=== PATIENT | male | born 1970 | race American Indian/Alaskan Native ===

== ENCOUNTER 2016-10-01 06:36 | Inpatient (IN) | payer SELFPAY ==
[2016-10-01 07:36] LABS: Basophils % (Auto) 0.5 % (0.0-1.8); Eosinophils % (Auto) 0.7 % (0.0-4.3); Hemoglobin 15.3 gm/dl (11.8-15.2); Mean Corpuscular HGB Conc 33 % (32-34); Mean Corpuscular Hemoglobin 28 pg (28-32); Mean Corpuscular Volume 83 fl (84-94); Platelet Count 221 K/mm3 (140-440); Red Blood Count 5.56 M/mm3 (3.65-5.03); Red Cell Distribution Width 14.3 % (13.2-15.2); White Blood Count 6.7 K/mm3 (4.5-11.0)
[2016-10-01 07:59] LABS: Anion Gap 18 mmol/L; Blood Urea Nitrogen 9 mg/dL (9-20); Calcium 9.5 mg/dL (8.4-10.2); Carbon Dioxide 26 mmol/L (22-30); Chloride 101.8 mmol/L (98-107); Glucose 119 mg/dL (75-100); Potassium 4.2 mmol/L (3.6-5.0); Sodium 142 mmol/L (137-145)
--- NOTE | 2016-10-01 08:20 | Emergency Department Report ---
ED Chest Pain HPI - General Chief Complaint: Chest Pain Stated Complaint: CHEST PAIN, BODY PAIN, Time Seen by Provider: 10/01/16 08:18 Source: patient Mode of arrival: Ambulatory Limitations: No Limitations - History of Present Illness Initial Comments: Patient describes an intermittent mostly right-sided chest pain since approximately 11:00 last night. He states he began feeling discomfort in the right subscapular area which then involved the right anterior aspect of his chest but also the substernal area all the way to the left breast. Described it as somewhat pressure-like associated with difficulty in breathing. Patient states about a week ago he had some similar pain which lasted for approximately 3 hours. This has been more prolonged this time. However at the time of my encounter the patient had resolved. Dyspnea was no longer present as well. Patient stated that he was nauseated transiently last night. The patient has flown to [place] approximately one month ago. He denied any problems with leg pain or swelling. He has no history of VTE. There is no family history of that as well. Patient thinks that his father may have of a heart attack. He himself has had no prior cardiac workup or hospitalization. MD Complaint: chest pain -: Gradual Onset: during rest Pain Location: substernal, right chest Pain Radiation: back Severity scale (0 -10): 6 Quality: aching Consistency: intermittent, now resolved Improves With: nothing Worsens With: nothing re: dyspnea. denies: nausea, vomting, diaphoresis Other Symptoms: denies: cough Treatments Prior to Arrival: none Aspirin use within the Past 7 Days: (0) No - Related Data Home Medications Medication Instructions Recorded Confirmed Last Taken No Known Home Medications [No 10/01/16 10/01/16 Unknown Reported Home Medications] Allergies Allergy/AdvReac Type Severity Reaction Status Date / Time No Known Allergies Allergy Unverified 10/01/16 07:02 Heart Score - HEART Score History: Moderately suspicious EKG: Normal Age: 45-65 Risk factors: 1-2 risk factors Troponin: < normal limit HEART Score: 3 - Critical Actions Critical Actions: 0-3 pts:0.9-1.7%risk of adverse cardiac event.Candidate for discharge ED Review of Systems ROS: Stated complaint: CHEST PAIN, BODY PAIN, Other details as noted in HPI Constitutional: denies: chills, fever Eyes: denies: eye pain, eye discharge, vision change ENT: denies: ear pain, throat pain Respiratory: shortness of breath. denies: cough, wheezing Cardiovascular: chest pain. denies: palpitations Endocrine: no symptoms reported Gastrointestinal: denies: abdominal pain, nausea, diarrhea Genitourinary: denies: urgency, dysuria Musculoskeletal: denies: back pain, joint swelling, arthralgia Skin: denies: rash, lesions Neurological: denies: headache, weakness, paresthesias Psychiatric: denies: anxiety, depression Hematological/Lymphatic: denies: easy bleeding, easy bruising ED Past Medical Hx - Past Medical History Previous Medical History?: No - Surgical History Past Surgical History?: No - Social History Smoking Status: Former Smoker Substance Use Type: None - Medications Home Medications: Home Medications Medication Instructions Recorded Confirmed Last Taken Type No Known Home Medications [No 10/01/16 10/01/16 Unknown History Reported Home Medications] ED Physical Exam - General Limitations: No Limitations General appearance: alert, in no apparent distress - Head Head exam: Present: atraumatic, normocephalic - Eye Eye exam: Present: normal appearance. Absent: scleral icterus - ENT ENT exam: Present: mucous membranes moist - Neck Neck exam: Present: normal inspection - Respiratory Respiratory exam: Present: normal lung sounds bilaterally. Absent: respiratory distress - Cardiovascular Cardiovascular Exam: Present: regular rate, normal rhythm. Absent: systolic murmur, diastolic murmur, rubs, gallop - GI/Abdominal GI/Abdominal exam: Present: soft, normal bowel sounds. Absent: distended, tenderness, guarding, rebound - Rectal Rectal exam: Present: deferred - Extremities Exam Extremities exam: Present: normal inspection, normal capillary refill. Absent: tenderness, pedal edema, joint swelling, calf tenderness - Back Exam Back exam: Present: normal inspection - Neurological Exam Neurological exam: Present: alert, oriented X3, CN II-XII intact. Absent: motor sensory deficit - Psychiatric Psychiatric exam: Present: normal affect, normal mood - Skin Skin exam: Present: warm, dry, intact, normal color. Absent: rash ED Course Vital Signs 10/01/16 10/01/16 06:51 07:25 Temperature 98.7 F Pulse Rate 68 Respiratory 18 20 Rate Blood Pressure 137/87 Blood Pressure 137/87 [Left] O2 Sat by Pulse 100 100 Oximetry - Reevaluation(s) Reevaluation #1: Patient's pain was somewhat atypical. His d-dimer was negative. Not withstanding this I think it's reasonable to put him in for cardiac workup as he did have associated symptoms and some substernal component of his pain with a positive family history of myocardial infarction. He was admitted by Dr. Bean to the hospitalist service for further care and evaluation. 10/01/16 10:09 ELIESER score - Elieser Score Age > 65: (0) No Aspirin use within the Past 7 Days: (0) No 3 or more CAD Risk Factors: (0) No 2 or more Angina events in past 24 hrs: (0) No Known CAD with more than 50% Stenosis: (0) No Elevated Cardiac Markers: (0) No ST Deviation Greater than 0.5mm: (0) No ELIESER Score: 0 ED Medical Decision Making - Lab Data Result diagrams: 10/01/16 07:12 10/01/16 07:12 Laboratory Results - last 24 hr 10/01/16 10/01/16 07:12 07:12 WBC 6.7 RBC 5.56 H Hgb 15.3 H Hct 46.0 H MCV 83 L MCH 28 MCHC 33 RDW 14.3 Plt Count 221 Lymph % (Auto) 18.8 Sequoyah % (Auto) 5.0 Eos % (Auto) 0.7 Baso % (Auto) 0.5 Lymph # 1.3 Sequoyah # 0.3 Eos # 0.0 Baso # 0.0 Seg Neutrophils % 75.0 H Seg Neutrophils # 5.1 Sodium 142 Potassium 4.2 Chloride 101.8 Carbon Dioxide 26 Anion Gap 18 BUN 9 Creatinine 1.0 Estimated GFR > 60 BUN/Creatinine Ratio 9.00 Glucose 119 H Calcium 9.5 Troponin T < 0.010 - EKG Data -: EKG Interpreted by Me EKG shows normal: sinus rhythm Rate: normal - EKG Data 10/01/16 08:20 There is a slight intraventricular conduction delay perhaps. There are Q waves in the inferior leads. There is minimal J-point elevation in the inferior leads. There is somewhat rightward axis. No STEMI right ear area. - Radiology Data interpreted by me: Chest x-ray shows no acute process Critical care attestation.: If time is entered above; I have spent that time in minutes in the direct care of this critically ill patient, excluding procedure time. ED Disposition Clinical Impression: Chest pain Qualifiers: Chest pain type: unspecified Qualified Code(s): R07.9 - Chest pain, unspecified Disposition: DC-09 OP ADMIT IP TO THIS HOSP Is pt being admited?: Yes Does the pt Need Aspirin: Yes Condition: Stable Instructions: Chest Pain (ED) Time of Disposition: 10:12
--- NOTE | 2016-10-01 08:59 | XRay Report ---
Single view chest: History: Difficulty breathing. Findings: Normal cardiomediastinal silhouette. Trachea is midline. No consolidation, pneumothorax or pleural effusion. Impression: No acute cardiopulmonary findings.
[2016-10-01 09:08] LABS: INR 1.14 (0.87-1.13)
[2016-10-01 09:09] LABS: Partial Thromboplastin Time 32.1 Sec. (24.2-36.6)
[2016-10-01 09:30] LABS: Alanine Aminotransferase 22 units/L (7-56); Albumin 4.6 g/dL (3.9-5); Albumin/Globulin Ratio 1.6 %; Alkaline Phosphatase 63 units/L (35-129); Total Protein 7.5 g/dL (6.3-8.2)
[2016-10-01 09:33] LABS: Bilirubin,Direct < 0.2 mg/dL (0-0.2)
[2016-10-01] MEDS: BABY ASPIRIN PO SCH (12:30)
--- NOTE | 2016-10-01 14:12 | Admit Criteria Form ---
Admission Criteria Documentation: CARDIOLOGY GRG Clinical Indications for Admission to Inpatient Care ( Place 'X' for any and all applicable criteria): Hospital admission is needed for appropriate care of the patient because of ANY ONE of the following (1): [ ] I. Hemodynamic instability as indicated by ALL of the following (1)(2)(3) (4)(5) [ ]a) Vital signs or other findings not as expected for chronic patient condition or baseline [ ]b) Instability indicated by ANY ONE of the following: [ ]i) Hypotension [ ]ii) Symptomatic Tachycardia unresponsive to treatment ( e.g., analgesia, fluids, sedation as indicated) [ ]iii) Inadequate perfusion indicated by ANY ONE of the following: [ ] 1) Lactic acidosis (> 2 mmol/L) [ ] 2) New abnormal capillary refill (> 3 seconds) [ ] 3) Reduced urine output [ ] 4) New altered mental status [ ]iv) Orthostatic vital sign changes unresponsive to treatment (e.g., fluids) [ ]v) IV inotropic or vasopressor medication required to maintain adequate blood pressure or perfusion [ ] II. Severe heart failure as indicated by ANY ONE of the following(17)(18) [ ]a) Respiratory distress [ ]b) Hypotension [ ]c) Anasarca (refractory to outpatient therapy) [ ]d) Cardiac arrhythmias of immediate concern [ ]e) Myocardial ischemia [ ] III. Cardiac arrhythmias or findings of immediate concern indicated by ANY ONE of the following (19)(20): [ ] a) Heart rhythms that are inherently dangerous or unstable indicated by ANY ONE of the following (21)(22)(23): [ ] i) Resuscitated ventricular fibrillation or cardiac arrest [ ] ii) Ventricular escape rhythm [ ] iii) Sustained ventricular tachycardia (30 seconds or more of ventricular rhythm at greater than 100 beats per minute) [ ] iv) Nonsustained ventricular tachycardia and ANY ONE of the following: [ ] 1) Suspected cardiac ischemia as cause or consequence of ventricular tachycardia [ ] 2) In setting of acute myocarditis [ ] b) Unstable cardiac conduction defects indicated by ANY ONE of the following(23)(24)(25) [ ] i) Type II second-degree atrioventricular block [ ]ii) Third-degree atrioventricular block [ ]iii) New-onset left bundle branch block with suspected myocardial ischemia [ ]c) Any heart rhythm and ANY ONE of the following (21)(22)(26)(27) (28) [ ] i) Continuous long-term ECG monitoring needed (e.g., initiation of drug requiring monitoring for more than 24 hours) [ ] ii) Patient has automatic implanted cardioverter defibrillator that is repeatedly firing, malfunctioning, or in need of immediate adjustment of settings beyond the scope of ambulatory or observation care [ ]d) Heart rhythms of concern due to ANY ONE of the following: [ ] i) Hypotension [ ] ii) Respiratory distress [ ] iii) Association with other significant symptoms (e.g., bradycardia with syncope or ongoing dizziness, supraventricular tachycardia with chest pain (14)(15)(17) [ ] IV. Monitoring for cardiac contusion beyond the scope of observation care needed [A](30)(31)(32) [ ] V. Surgical or device complication (e.g., valve replacement complication , pacemaker dysfunction) (35)(41)(44)(45)(46) [ ] . Inpatient palliative care needed. [B](49) Also use Inpatient Palliative Care Criteria [ ] VII. Nonbacterial thrombotic (marantic) endocarditis (36)(43)(47)(48) [X ] VIII. Cardiology condition, symptom, or finding for which emergency and observation care has failed or are not considered appropriate. [ ] IX. Acute valvular disease requiring inpatient as indicated by ANY ONE of the following (41) [ ]a) Acute valvular regurgitation (42) [ ]b) Noninfectious valvulitis (43) [ ]c) Obstructive valve thrombosis [ ]d) Paravalvular leak [ ]e) Other significant valvular disorder remaining after emergency or observation level of care (as appropriate) [ ]X. Pericardial disease requiring inpatient treatment as indicated by ANY ONE of the following (33)(34)(35)(36)(37) [ ]a) Suspected tamponade (38)(39)(40) [ ]b) Hemopericardium [ ]c) Other significant pericardial disorder remaining after emergency or observation level of care (as appropriate) [ ] XI. Cardiac ischemia beyond scope of emergency and observation care. [ ] XII. Hypertension requiring inpatient treatment as indicated by ANY ONE of the following (6)(7)(8) [ ]a) SBP greater than 220 mm Hg or DBP greater than 120 mmHg despite treatment [ ]b) SBP greater than 140 mm Hg or DBP greater than 100 mm Hg with evidence of acute end organ damage as indicated by ANY ONE of the following [ ] i) Altered mental status [ ] ii) Acute renal failure as indicated by new onset of ANY ONE of the following (9)(10)(11)(12)(13) [ ]1) 3-fold rise in serum creatinine from baseline [ ]2) Serum creatinine greater than 4 mg/dL ( 354 micromoles/L) with acute rise greater than 0.5 mg/dL (44.2 micromoles/L) [ ]3) Reduction of more than 75% in estimated glomerular filtration rate from baseline [ ]4) Estimated glomerular filtration rate less than 35 mL/min/1.73m2 (0.59 mL/sec/1.73m2) in child up to 18 years of age [ ]5) Cessation of urine output indicated by ALL of the following [ ]A. Adequate volume status [ ]B. Inadequate urine output as indicated by ANY ONE of the following [ ]a. Urine output less than 0.3 mL/kg/hr for 24 hours [ ]b. Anuria (urine output less than 0.1 mL/kg/hr) for 12 hours [ ] iii) Aortic dissection [ ] iv) Myocardial Ischemia [ ] v) Left ventricular heart failure [ ]vi) Retinal Hemorrhage [ ]vii) Other significant finding [ ]c) Hypertension in child requiring inpatient treatment as indicated by ALL of the following(14)(15)(16) [ ] i) Outpatient treatment not effective, not available, or not appropriate [ ]ii) SBP or DBP greater than 95th percentile for age [ ]iii) Evidence of acute end organ damage as indicated by ANY ONE of the following [ ]1) Altered mental status [ ]2) Acute renal failure as indicated by new onset of ANY ONE of the following(9)(10)(11)(12)(13) [ ]A. 3-fold rise in serum creatinine from baseline [ ]B. Serum creatinine greater than 4 mg/dL (354 micromoles/L) with acute rise greater than 0.5 mg/dL (44.2 micromoles/L) [ ]C. Reduction of more than 75% in estimated glomerular filtration rate from baseline [ ]D. Estimated glomerular filtration rate less than 35 mL/min/1.73m2 (0.59 mL/sec/1.73m2) in child up to 18 years of age [ ]E. Cessation of urine output indicated by ALL of the following [ ]a. Adequate volume status [ ]b. Inadequate urine output as indicated by ANY ONE of the following [ ]i) Urine output less than 0.3 mL/kg/hr for 24 hours [ ]ii) Anuria ( urine output less than 0.1 mL/kg/hr) for 12 hours [ ]3) Severe headache [ ]4) Visual disturbance [ ]5) Retinal hemorrhage [ ]6) Other significant finding [ ]XIII. Complications of transplanted heart indicated by ANY ONE of the following(61): [ ]a) Acute graft rejection requiring inpatient management (eg, intravenous immunosuppression)(62)(63) [ ]b) Acute graft heart failure indicated by ANY ONE of the following(64): [ ]i) Hemodynamic instability [ ]ii) Cardiac arrhythmias of immediate concern [ ]iii) Pulmonary edema that is very severe (eg, mechanical ventilation needed, imminent or likely, need for 100% oxygen to keep oxygen saturation above 90%) [ ]iv) Pulmonary edema that is persistent as indicated by ALL of the following: [ ]1) New need for oxygen therapy to keep oxygen saturation above 90% (or increased FiO2 need from baseline) [ ]2) Has not improved sufficiently with emergency department or observation care IV diuretics or other heart failure treatments[E] [ ]v) Altered mental status that is severe or persistent [ ]vi) Increased creatinine (new on laboratory test) with reduction of more than 50% in estimated glomerular filtration rate from baseline [ ]vii) Progressively (ongoing) rising creatinine (known from past laboratory test) with reduction of more than 25% in estimated glomerular filtration rate from baseline [ ]viii) Acute renal failure [ ]ix) Acute peripheral ischemia (eg, examination shows pulseless, cool, mottled, or cyanotic extremity) [ ]x) Pulmonary artery catheter monitoring needed [ ]xi) Other sign or symptom of heart failure requiring inpatient treatment (ie, too severe or not responsive to outpatient and observation care treatment) [ ]c) Infection requiring inpatient management (eg, Hemodynamic instability, need for intravenous antimicrobial treatment)(66)(67)(68)(69)(70) [ ]d) Cardiac allograft vasculopathy requiring inpatient management ( eg evidence of cardiac ischemia)(71) [ ]e) Other complication of transplanted heart (eg, stroke, severe pulmonary hypertension, severe valvular dysfunction) requiring inpatient management(72) The original [facility] [employer] content created by [facility] has been revised. The portions of the content which have been revised are identified through the use of italic text or in bold, and [facility] has neither reviewed nor approved the modified material. All other unmodified content is copyright [facility] [employer]. Please see references footnoted in the original [facility] [employer] edition 2016 Admission Criteria Met: Yes
[2016-10-01] MEDS ORDERED: ZOFRAN IV PRN (14:55)
[2016-10-01] MEDS ORDERED: DULCOLAX PR PRN (14:55)
[2016-10-01] MEDS ORDERED: MILK OF MAGNESIA PO PRN (14:55)
[2016-10-01] MEDS ORDERED: DILAUDID IV PRN (14:55)
[2016-10-01] MEDS ORDERED: TYLENOL PO PRN (14:55)
[2016-10-01] MEDS ORDERED: AMBIEN PO PRN (14:55)
--- NOTE | 2016-10-01 14:55 | History and Physical Report ---
History of Present Illness Date of examination: 10/01/16 Date of admission: 10/01/16 09:11 Chief complaint: Chest pain since 11 pm l;ast night History of present illness: HILDA Patient describes an intermittent mostly right-sided chest pain since approximately 11:00 last night. He states he began feeling discomfort in the right subscapular area which then involved the right anterior aspect of his chest but also the substernal area all the way to the left breast. Described it as somewhat pressure-like associated with difficulty in breathing. Patient states about a week ago he had some similar pain which lasted for approximately 3 hours. This has been more prolonged this time. However at the time of my encounter the patient had resolved. Dyspnea was no longer present as well. Patient stated that he was nauseated transiently last night. The patient has flown to [place] approximately one month ago. He denied any problems with leg pain or swelling. He has no history of VTE. There is no family history of that as well. Patient thinks that his father may have of a heart attack. He himself has had no prior cardiac workup or hospitalization. MD Complaint: chest pain -: Gradual Onset: during rest Pain Location: substernal, right chest Pain Radiation: back Severity scale (0 -10): 6 Quality: aching Consistency: intermittent, now resolved Improves With: nothing Worsens With: nothing re: dyspnea. denies: nausea, vomting, diaphoresis Other Symptoms: denies: cough Treatments Prior to Arrival: none Aspirin use within the Past 7 Days: (0) No - Related Data Home Medications Medication Instructions Recorded Confirmed Last Taken No Known Home Medications [No 10/01/16 10/01/16 Unknown Reported Home Medications] Allergies Allergy/AdvReac Type Severity Reaction Status Date / Time No Known Allergies Allergy Unverified 10/01/16 07:02 Heart Score - HEART Score History: Moderately suspicious EKG: Normal Age: 45-65 Risk factors: 1-2 risk factors Troponin: < normal limit HEAR - Past Medical History Previous Medical History?: No - Surgical History Past Surgical History?: No - Social History Smoking Status: Former Smoker Substance Use Type: None Fam history-No Htn/DM T Score: 3 - ED Review of Systems ROS: Stated complaint: CHEST PAIN, BODY PAIN, Other details as noted in HPI Constitutional: denies: chills, fever Eyes: denies: eye pain, eye discharge, vision change ENT: denies: ear pain, throat pain Respiratory: shortness of breath. denies: cough, wheezing Cardiovascular: chest pain. denies: palpitations Endocrine: no symptoms reported Gastrointestinal: denies: abdominal pain, nausea, diarrhea Genitourinary: denies: urgency, dysuria Musculoskeletal: denies: back pain, joint swelling, arthralgia Skin: denies: rash, lesions Neurological: denies: headache, weakness, paresthesias Psychiatric: denies: anxiety, depression Hematological/Lymphatic: denies: easy bleeding, easy bruising Medications and Allergies Allergies Allergy/AdvReac Type Severity Reaction Status Date / Time No Known Allergies Allergy Verified 10/01/16 10:14 Home Medications Medication Instructions Recorded Confirmed Last Taken Type No Known Home Medications [No 10/01/16 10/01/16 Unknown History Reported Home Medications] Active Meds: Active Medications Aspirin (Baby Aspirin) 162 mg PO QDAY ALONSO Last Admin: 10/01/16 12:30 Dose: 162 mg Exam - Physical Exam Narrative exam: Cheerful and wanting to go home - Constitutional Vitals: Temp Pulse Resp BP Pulse Ox 98.7 F 69 22 126/76 98 10/01/16 06:51 10/01/16 14:18 10/01/16 14:18 10/01/16 14:18 10/01/16 14:18 General appearance: Present: no acute distress, well-nourished - EENT Eyes: Present: PERRL ENT: hearing intact, clear oral mucosa - Neck Neck: Present: supple, normal ROM - Respiratory Respiratory effort: normal Respiratory: bilateral: CTA - Cardiovascular Heart rate: 70 Rhythm: regular Heart Sounds: Present: S1 & S2. Absent: rub, click - Extremities Extremities: pulses symmetrical, No edema Peripheral Pulses: within normal limits - Abdominal General gastrointestinal: Present: soft, non-tender, non-distended, normal bowel sounds Male genitourinary: Present: normal - Rectal Rectal Exam: deferred - Integumentary Integumentary: Present: clear, warm, dry - Musculoskeletal Musculoskeletal: gait normal, strength equal bilaterally - Psychiatric Psychiatric: appropriate mood/affect, intact judgment & insight - Neurologic Neurologic: CNII-XII intact, moves all extremities - Allied Health Allied health notes reviewed: nursing, case management Results - Labs CBC & Chem 7: 10/01/16 07:12 10/01/16 07:12 Labs: Laboratory Last Values WBC 6.7 K/mm3 (4.5-11.0) 10/01/16 07:12 RBC 5.56 M/mm3 (3.65-5.03) H 10/01/16 07:12 Hgb 15.3 gm/dl (11.8-15.2) H 10/01/16 07:12 Hct 46.0 % (35.5-45.6) H 10/01/16 07:12 MCV 83 fl (84-94) L 10/01/16 07:12 MCH 28 pg (28-32) 10/01/16 07:12 MCHC 33 % (32-34) 10/01/16 07:12 RDW 14.3 % (13.2-15.2) 10/01/16 07:12 Plt Count 221 K/mm3 (140-440) 10/01/16 07:12 Lymph % (Auto) 18.8 % (13.4-35.0) 10/01/16 07:12 Isabella % (Auto) 5.0 % (0.0-7.3) 10/01/16 07:12 Eos % (Auto) 0.7 % (0.0-4.3) 10/01/16 07:12 Baso % (Auto) 0.5 % (0.0-1.8) 10/01/16 07:12 Lymph # 1.3 K/mm3 (1.2-5.4) 10/01/16 07:12 Isabella # 0.3 K/mm3 (0.0-0.8) 10/01/16 07:12 Eos # 0.0 K/mm3 (0.0-0.4) 10/01/16 07:12 Baso # 0.0 K/mm3 (0.0-0.1) 10/01/16 07:12 Seg Neutrophils % 75.0 % (40.0-70.0) H 10/01/16 07:12 Seg Neutrophils # 5.1 K/mm3 (1.8-7.7) 10/01/16 07:12 PT 14.5 Sec. (12.2-14.9) 10/01/16 08:44 INR 1.14 (0.87-1.13) H 10/01/16 08:44 APTT 32.1 Sec. (24.2-36.6) 10/01/16 08:44 D-Dimer < 135.00 ng/mlDDU (0-234) 10/01/16 08:44 Sodium 142 mmol/L (137-145) 10/01/16 07:12 Potassium 4.2 mmol/L (3.6-5.0) 10/01/16 07:12 Chloride 101.8 mmol/L (98-107) 10/01/16 07:12 Carbon Dioxide 26 mmol/L (22-30) 10/01/16 07:12 Anion Gap 18 mmol/L 10/01/16 07:12 BUN 9 mg/dL (9-20) 10/01/16 07:12 Creatinine 1.0 mg/dL (0.8-1.5) 10/01/16 07:12 Estimated GFR > 60 ml/min 10/01/16 07:12 BUN/Creatinine Ratio 9.00 % 10/01/16 07:12 Glucose 119 mg/dL (75-100) H 10/01/16 07:12 Calcium 9.5 mg/dL (8.4-10.2) 10/01/16 07:12 Magnesium 2.30 mg/dL (1.7-2.3) 10/01/16 08:44 Total Bilirubin 0.30 mg/dL (0.1-1.2) 10/01/16 08:44 Direct Bilirubin < 0.2 mg/dL (0-0.2) 10/01/16 08:44 AST 15 units/L (5-40) 10/01/16 08:44 ALT 22 units/L (7-56) 10/01/16 08:44 Alkaline Phosphatase 63 units/L (35-129) 10/01/16 08:44 Troponin T < 0.010 ng/mL (0.00-0.029) 10/01/16 13:22 NT-Pro-B Natriuret Pep 15.40 pg/mL (0-450) 10/01/16 08:44 Total Protein 7.5 g/dL (6.3-8.2) 10/01/16 08:44 Albumin 4.6 g/dL (3.9-5) 10/01/16 08:44 Albumin/Globulin Ratio 1.6 % 10/01/16 08:44 Short CBC 10/01/16 Range/Units 07:12 WBC 6.7 (4.5-11.0) K/mm3 Hgb 15.3 H (11.8-15.2) gm/dl Hct 46.0 H (35.5-45.6) % Plt Count 221 (140-440) K/mm3 BMP 10/01/16 07:12 Sodium 142 Potassium 4.2 Chloride 101.8 Carbon Dioxide 26 BUN 9 Creatinine 1.0 Glucose 119 H Calcium 9.5 Cardiac Enzymes 10/01/16 10/01/16 10/01/16 Range/Units 07:12 10:00 13:22 Troponin T < 0.010 < 0.010 < 0.010 (0.00-0.029) ng/mL Liver Function 10/01/16 Range/Units 08:44 Total Bilirubin 0.30 (0.1-1.2) mg/dL Direct Bilirubin < 0.2 (0-0.2) mg/dL AST 15 (5-40) units/L ALT 22 (7-56) units/L Alkaline Phosphatase 63 (35-129) units/L Albumin 4.6 (3.9-5) g/dL - Imaging and Cardiology EKG: report reviewed (NSR no st t wave changes) Chest x-ray: report reviewed (NAF) Assessment and Plan Advance Directives: Yes (Full code) VTE prophylaxis?: Chemical Plan of care discussed with patient/family: Yes - Patient Problems (1) Acute chest pain Current Visit: Yes Status: Acute Plan to address problem: Serial cardiac enzymes and Lexiscan in AM DDX of reflux esophagitis and costochondritis to be considered. (2) Reflux esophagitis Current Visit: Yes Status: Acute Plan to address problem: on pepcid (3) DVT prophylaxis Current Visit: Yes Status: Acute Plan to address problem: On Lovenox 40 mg sq qd
[2016-10-01] MEDS ORDERED: NACL 0.45% 1000 ML 1,000 ML IV SCH (15:00)
[2016-10-01] MEDS: PEPCID IV SCH (22:31)
[2016-10-02 06:09] LABS: Basophils % (Auto) 0.6 % (0.0-1.8); Eosinophils % (Auto) 3.6 % (0.0-4.3); Hematocrit 46.6 % (35.5-45.6); Hemoglobin 15.5 gm/dl (11.8-15.2); Mean Corpuscular HGB Conc 33 % (32-34); Mean Corpuscular Hemoglobin 28 pg (28-32); Mean Corpuscular Volume 82 fl (84-94); Platelet Count 222 K/mm3 (140-440); Red Blood Count 5.66 M/mm3 (3.65-5.03); Red Cell Distribution Width 14.3 % (13.2-15.2); White Blood Count 5.5 K/mm3 (4.5-11.0)
[2016-10-02 06:20] LABS: Alanine Aminotransferase 19 units/L (7-56); Albumin 4.6 g/dL (3.9-5); Albumin/Globulin Ratio 1.6 %; Anion Gap 14 mmol/L; Blood Urea Nitrogen 9 mg/dL (9-20); Calcium 9.4 mg/dL (8.4-10.2); Carbon Dioxide 30 mmol/L (22-30); Chloride 99.6 mmol/L (98-107); Glucose 94 mg/dL (75-100); Potassium 4.5 mmol/L (3.6-5.0); Sodium 139 mmol/L (137-145); Total Protein 7.5 g/dL (6.3-8.2)
[2016-10-02 06:43] LABS: Alkaline Phosphatase 62 units/L (35-129); Creatine Kinase MB 1.4 ng/mL (0.0-4.0)
--- NOTE | 2016-10-02 11:19 | Event Note ---
Date: 10/02/16 Myocardial perfusion scan was done using the standard protocol. Patient was infused with radioactive tracer pre-and post-Exercise stress test. Images were taken pre-and post stress test. Patient tolerated the procedure well. Findings Homogeneous uptake of tracer noted in the rest and stress images. Comparison of the rest and stress images revealed no fixed or reversible defects suggestive of ischemia or infarct. Gated analysis showed normal LV systolic function with preserved LVEF. Impression Normal stress myocardial perfusion scan Nurse notified
[2016-10-02] MEDS: BABY ASPIRIN PO SCH (12:00)
[2016-10-02] MEDS: PEPCID IV SCH (12:00)
--- NOTE | 2016-10-02 13:34 | Discharge Summary ---
Providers - Providers Date of Admission: 10/01/16 09:11 Date of discharge: 10/02/16 Attending physician: MARCELLUS ALBERTS Primary care physician: REECE RAMIREZ MD Hospitalization Condition: Stable Hospital course: Discharge diagnosis: (1) Acute chest pain Serial cardiac enzymes and Lexiscan in AM was normal likely due to reflux esophagitis (2) Reflux esophagitis Place on protonix Disposition: DC- TO HOME OR SELFCARE Time spent for discharge: 32 minutes Core Measure Documentation - Palliative Care Palliative Care/ Comfort Measures: Not Applicable - Core Measures Any of the following diagnoses?: none Exam - Constitutional Vitals: Temp Pulse Resp BP Pulse Ox 98.2 F 74 18 118/74 98 10/02/16 08:00 10/02/16 08:00 10/02/16 08:00 10/02/16 08:00 10/02/16 08:00 General appearance: Present: no acute distress, well-nourished - EENT Eyes: Present: PERRL ENT: hearing intact, clear oral mucosa - Neck Neck: Present: supple, normal ROM - Respiratory Respiratory effort: normal Respiratory: bilateral: CTA - Cardiovascular Heart Sounds: Present: S1 & S2. Absent: rub, click - Extremities Extremities: pulses symmetrical, No edema Peripheral Pulses: within normal limits - Abdominal General gastrointestinal: Present: soft, non-tender, non-distended, normal bowel sounds - Integumentary Integumentary: Present: clear, warm, dry - Musculoskeletal Musculoskeletal: gait normal, strength equal bilaterally - Psychiatric Psychiatric: appropriate mood/affect, intact judgment & insight - Neurologic Neurologic: CNII-XII intact, moves all extremities Plan Activity: advance as tolerated Weight Bearing Status: Weight Bear as Tolerated Diet: low fat, low salt Follow up with: PRIMARY CARE, [Primary Care Provider] - 7 Days Prescriptions: Pantoprazole [Protonix] 40 mg PO QDAY #30 tablet
[2016-10-02 13:42] VITALS: BP 101/66
== END 2016-10-02 17:25 | disposition home or self-care (01) | DRG 392 ==
LOC: ED 06:36 → 4A 09:11
PROVIDERS: ADMIT Internal Medicine; ATTEND Internal Medicine
DX: K21.0 Gastro-esophageal reflux disease with esophagitis (principal); R07.9 Chest pain, unspecified; Z87.891 Personal history of nicotine dependence
CPT/HCPCS: 36415; 71010; 78452; 80048; 80053; 80074; 82550; 82553; 83735; 83880; 84484; 85025; 85379; 85610; 85730; 93005; 93010; 93017; A9502